=== PATIENT | male | born 1985 | race African-American/Black ===

== ENCOUNTER 2023-02-28 16:44 | Emergency (ER) | payer SELFPAY ==
[~2023-02-28] VITALS: Ht 185.4 cm; Wt 80.7 kg
[2023-02-28] MEDS ORDERED: ACETAMINOPHEN ES 500 MG TABLET ONE (17:29)
[2023-02-28] MEDS ORDERED: ACETAMINOPHEN ES 500 MG TABLET PO ONE (17:30)
[2023-02-28 18:49] VITALS: BP 142/63
== END 2023-02-28 18:49 | disposition home or self-care (01) ==
LOC: ER 16:46
DX: S00.03XA Contusion of scalp, initial encounter (principal); W20.8XXA Other cause of strike by thrown, projected or falling object, initial encounter; Y93.89 Activity, other specified; Y92.89 Other specified places as the place of occurrence of the external cause; Y99.8 Other external cause status
CPT/HCPCS: 70450-TC; 72125-TC